=== PATIENT | female | born 1995 | race African-American/Black ===

== ENCOUNTER 2017-06-21 16:12 | Emergency (ER) | payer SELFPAY ==
[2017-06-21 16:46] LABS: #Eosinphils 0.1 thou/uL (0.0-0.7); #Lymphocytes 2.1 thou/uL (1.20-3.40); #Monocytes 0.7 thou/uL (0.11-0.59); #Neutrophils 7.7 thou/uL (1.40-6.50); %Basophils 0.2 % (0.0-1.0); %Eosinophils 1.1 % (0.0-10.0); %Lymphocytes 19.7 % (28.0-48.0); %Monocytes 6.3 % (0.0-4.0); Hematocrit 29.5 % (36.0-47.0); Mean Platelet Volume 7.6 fL (7.4-10.4); White Blood Cell (WBC) Count 10.6 thou/uL (4.8-10.8)
[2017-06-21 16:53] LABS: PTT 30.9 SEC (22.9-36.1); Prothrombin Time 14.1 SEC (12.0-14.7)
[2017-06-21 17:13] LABS: ALT (SGPT) 28 U/L (8-55); AST (SGOT) 26 U/L (5-34); Alkaline Phosphatase 63 U/L (40-150); Anion Gap 10 mmol/L (10-20); BUN (Urea Nitrogen) 9 mg/dL (7.0-18.7); Bilirubin, Total 0.3 mg/dL (0.2-1.2); Calc. Creatinine Clearance 0 mL/min (70-130); Calcium 8.9 mg/dL (7.8-10.44); Carbon Dioxide 26 mmol/L (22-29); Chloride 106 mmol/L (98-107); Estimated GFR-MDRD Greater than 90; Protein, Total 6.8 g/dL (6.0-8.3)
[2017-06-21 17:26] LABS: Bilirubin Negative (Negative); Blood, Urine Large (Negative); Glucose, Urine (Dipstick) Negative (Negative); Ketone, Urine Negative (Negative); Nitrite Negative (Negative); Protein, Urine (Dipstick) Negative (Neg-Trace); Urobilinogen 0.2 mg/dL (0.2-1.0)
[2017-06-21 17:29] LABS: Bacteria/HPF None Seen HPF (None Seen); Hyaline Casts/LPF 0-3 HYALINE CAST LPF (0-3 Hyaline); RBC/HPF GREATER THAN 50-TNTC HPF (0-3); Squamous Epithelial 0-3 HPF (0-3); WBC/HPF 0-3 HPF (0-3)
== END 2017-06-21 17:55 | disposition home or self-care (01) ==
LOC: ERS 16:12
DX: N93.8 Other specified abnormal uterine and vaginal bleeding (principal); I10 Essential (primary) hypertension; F42.9 Obsessive-compulsive disorder, unspecified; F17.210 Nicotine dependence, cigarettes, uncomplicated
CPT/HCPCS: 36415; 80053; 81003; 81015; 84703; 85025; 85610; 85730; 87086; 87480; 87491; 87510; 87591; 87660; 99284